=== PATIENT | male | born 1995 | race Caucasian/White ===

== ENCOUNTER 2019-11-26 08:08 | Outpatient (CLI) | payer BC, SELFPAY ==
--- NOTE | 2019-11-26 | XR_ITS ---
WS: [id number] CERVICAL SPINE TECHNIQUE: 3 views of the cervical spine CLINICAL INFORMATION: CERVICAL STRAIN COMPARISON: None. FINDINGS: Straightening of the normal cervical lordosis. Normal C1-2 articulation. Normal prevertebral soft tis sues. No instability on flexion-extension. XR/XR cervical spine 4-5V [id number] IMPRESSION: Straightening of the normal cervical lordosis. No instability on flexion-extens ion.
== END 2019-11-26 08:09 | disposition home or self-care (01) ==
LOC: RADOUTREAD 10:40
PROVIDERS: Family Provider Family Medicine; Visit Provider Family Medicine
DX: Z76.89 Persons encountering health services in other specified circumstances (principal)

== ENCOUNTER → 2020-09-11 12:00 | Outpatient (BNVA) | payer OTHER, SELFPAY | PROVIDERS: Family Provider Family Medicine; Visit Provider Nurse Practitioner Family | DX: Z20.828 Contact with and (suspected) exposure to other viral communicable diseases (principal); J06.9 Acute upper respiratory infection, unspecified | CPT/HCPCS: 87426 ==

== ENCOUNTER → 2023-11-14 13:24 | Outpatient (BNVA) | payer OTHER, SELFPAY | PROVIDERS: Family Provider Family Medicine; PCP Clinical Nurse Specialist Adult Health; Visit Provider Student in an Organized Health Care Education/Training Program | DX: M25.561 Pain in right knee (principal); M76.51 Patellar tendinitis, right knee | CPT/HCPCS: 73560; 73565 ==